=== PATIENT | male | born 1955 | race Caucasian/White ===

== ENCOUNTER 2024-06-17 18:42 | Emergency (ER) | payer MEDICARE, SELFPAY ==
[2024-06-17 18:46] VITALS: BP 160/88; PULSE 86; TEMP 36.6; O2SAT 99; BMI 28.8
--- NOTE | 2024-06-17 18:59 | CT_ITS ---
The [address] [address] Patient Name: MAUDE MATHIAS MRN: [facility]:[id number] date: 1955 Sex: M Assigned Patient Location: ED.MAIN Current Patient Location: ED.MAIN Accession/Order Number: [id number] Exam Date: 06/17/2024 20:32 Report Date: 06/17/2024 23:42 At the request of: ANTONIO BETTS Procedure: CT abdomen pelvis w con EXAM: CT abdomen pelvis w con, CT chest w con HISTORY: Rib pain since fall 9 days ago. Abdominal pain. No bowel movement. COMPARISON: CT chest, 10/14/2013. TECHNIQUE: IV contrast enhanced CT imaging of the chest, abdomen and pelvis was performed using 100 mL of Omnipaque 300 intravenous contrast. Sagittal and coronal reconstructions are provided. Dose reduction techniques were achieved by using automated exposure control and/or adjustment of mA and/or kV according to patient size and/or use of iterative reconstruction technique. FINDINGS: CT CHEST: No mediastinal or great vessel injury is seen. Pulsation artifact degrades ascending aorta. The left vertebral artery originates off the aortic arch, a normal variant. Mild atherosclerotic calcifications are present in the aortic arch. The thoracic aorta and arch vessels are otherwise unremarkable. Cardiac size is normal. No coronary arterial calcification or pericardial effusion is seen. The thyroid gland and esophagus are unremarkable. There is nonspecific patchy airspace disease in the left lower lobe which could reflect aspiration or pneumonia, versus less likely, atelectasis or pulmonary contusion. The lungs are otherwise clear. No pleural effusion or pneumothorax is seen. No acute osseous findings are seen in the chest. 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 CT ABDOMEN: No acute solid organ injury is seen. Cholelithiasis is noted without cholecystitis or biliary ductal dilatation. The liver and pancreas are unremarkable. There is a 0.9 cm subcapsular cyst in the posterior spleen. The second subcentimeter medial splenic cyst is seen on image 44. The spleen is otherwise unremarkable. The adrenal glands and right kidney appear normal. There are left renal cortical cysts measuring up to 4.1 cm off the lateral posterior midpole of the left kidney. The left kidney is otherwise unremarkable. There is nonspecific wall thickening in the gastric pylorus extending through the first and second segments of the duodenum with surrounding fat stranding favoring nonspecific gastroduodenitis. No discrete ulcer is seen. The stomach and small bowel are otherwise unremarkable. There are moderate aortic and iliac calcifications without aneurysm. The IVC appears normal. CT PELVIS: No acute pelvic organ injury is seen. The appendix, pelvic small bowel loops and urinary bladder are unremarkable. There are mild calcifications in the top normal-sized prostate. There is mid sigmoid diverticulitis with a suggested 2.5 cm intramural abscess in the anterior sigmoid wall on image 139 of series 6, and a suspected second intramural abscess distal to this level, measuring 2.4 cm on image 144. Moderate length sigmoid wall thickening is present with surrounding inflammatory fat stranding. There is a fat-containing left inguinal hernia. Multilevel spinal degenerative changes are noted. No acute osseous abnormality or suspicious bony lesion is seen. CT/CT abdomen pelvis w con IMPRESSION: 1. Nonspecific airspace disease in the left lower lobe may reflect aspiration or pneumonia, versus less likely, pulmonary contusion or atelectasis. No pleural fluid, pneumothorax or overlying rib fracture is seen. No other acute findings are seen in the chest. 2. No acute traumatic change in the abdomen or pelvis. 3. Nonspecific wall thickening in the gastric pylorus extending through the second portion of the duodenum with mild surrounding fat stranding favoring nonspecific gastroduodenitis. This could be infectious, inflammatory, or due to peptic ulcer disease. No discrete ulcer is visualized. There is no bowel wall hematoma to suggest a traumatic etiology. 4. Cholelithiasis. 5. Sigmoid diverticulitis with 2 suspected intramural abscesses within a moderate length segment of sigmoid wall thickening surrounded by inflammatory change. No free air. No additional acute findings in the abdomen or pelvis. Electronically authenticated by: LANI CHAMORRO Date: 06/17/2024 23:42
--- NOTE | 2024-06-17 18:59 | CT_ITS ---
The [address] [address] Patient Name: MAUDE MATHIAS MRN: [facility]:[id number] date: 1955 Sex: M Assigned Patient Location: ED.MAIN Current Patient Location: ED.MAIN Accession/Order Number: [id number] Exam Date: 06/17/2024 20:32 Report Date: 06/17/2024 23:42 At the request of: ANTONIO BETTS Procedure: CT chest w con EXAM: CT abdomen pelvis w con, CT chest w con HISTORY: Rib pain since fall 9 days ago. Abdominal pain. No bowel movement. COMPARISON: CT chest, 10/14/2013. TECHNIQUE: IV contrast enhanced CT imaging of the chest, abdomen and pelvis was performed using 100 mL of Omnipaque 300 intravenous contrast. Sagittal and coronal reconstructions are provided. Dose reduction techniques were achieved by using automated exposure control and/or adjustment of mA and/or kV according to patient size and/or use of iterative reconstruction technique. FINDINGS: CT CHEST: No mediastinal or great vessel injury is seen. Pulsation artifact degrades ascending aorta. The left vertebral artery originates off the aortic arch, a normal variant. Mild atherosclerotic calcifications are present in the aortic arch. The thoracic aorta and arch vessels are otherwise unremarkable. Cardiac size is normal. No coronary arterial calcification or pericardial effusion is seen. The thyroid gland and esophagus are unremarkable. There is nonspecific patchy airspace disease in the left lower lobe which could reflect aspiration or pneumonia, versus less likely, atelectasis or pulmonary contusion. The lungs are otherwise clear. No pleural effusion or pneumothorax is seen. No acute osseous findings are seen in the chest. 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 CT ABDOMEN: No acute solid organ injury is seen. Cholelithiasis is noted without cholecystitis or biliary ductal dilatation. The liver and pancreas are unremarkable. There is a 0.9 cm subcapsular cyst in the posterior spleen. The second subcentimeter medial splenic cyst is seen on image 44. The spleen is otherwise unremarkable. The adrenal glands and right kidney appear normal. There are left renal cortical cysts measuring up to 4.1 cm off the lateral posterior midpole of the left kidney. The left kidney is otherwise unremarkable. There is nonspecific wall thickening in the gastric pylorus extending through the first and second segments of the duodenum with surrounding fat stranding favoring nonspecific gastroduodenitis. No discrete ulcer is seen. The stomach and small bowel are otherwise unremarkable. There are moderate aortic and iliac calcifications without aneurysm. The IVC appears normal. CT PELVIS: No acute pelvic organ injury is seen. The appendix, pelvic small bowel loops and urinary bladder are unremarkable. There are mild calcifications in the top normal-sized prostate. There is mid sigmoid diverticulitis with a suggested 2.5 cm intramural abscess in the anterior sigmoid wall on image 139 of series 6, and a suspected second intramural abscess distal to this level, measuring 2.4 cm on image 144. Moderate length sigmoid wall thickening is present with surrounding inflammatory fat stranding. There is a fat-containing left inguinal hernia. Multilevel spinal degenerative changes are noted. No acute osseous abnormality or suspicious bony lesion is seen. CT/CT chest w con IMPRESSION: 1. Nonspecific airspace disease in the left lower lobe may reflect aspiration or pneumonia, versus less likely, pulmonary contusion or atelectasis. No pleural fluid, pneumothorax or overlying rib fracture is seen. No other acute findings are seen in the chest. 2. No acute traumatic change in the abdomen or pelvis. 3. Nonspecific wall thickening in the gastric pylorus extending through the second portion of the duodenum with mild surrounding fat stranding favoring nonspecific gastroduodenitis. This could be infectious, inflammatory, or due to peptic ulcer disease. No discrete ulcer is visualized. There is no bowel wall hematoma to suggest a traumatic etiology. 4. Cholelithiasis. 5. Sigmoid diverticulitis with 2 suspected intramural abscesses within a moderate length segment of sigmoid wall thickening surrounded by inflammatory change. No free air. No additional acute findings in the abdomen or pelvis. Electronically authenticated by: LANI CHAMORRO Date: 06/17/2024 23:42
--- NOTE | 2024-06-17 19:01 | ED_ITS ---
Documented by User: Nataly Kenney 06/19/24 13:57 HPI HPI - Fall General Chief Complaint: Fall Stated Complaint: FALL ON SAT, ELBOW/RIB PAIN Time Seen by Provider: 06/17/24 18:53 Source: patient Mode of arrival: walk-in Limitations: no limitations History of Present Illness HPI Narrative: 69 year old male presents to the ED for pain to his mid abdomen s/p fall 06/08/24. States his legs gave out on him causing him to fall; states that is a recurrent issue for him. He was walking a large dog at the time which complicated the problem. He landed on his left elbow and left rib area. Denies hitting his head and LOC. Denies pain to his head, neck, back. He no longer has pain to the elbow. Reports decreased appetite due to his pain. His abd pain has been increasing. Denies SOB, dizziness, hematuria. Denies difficulty urinating. Related Data Home Medications ?Medication ?Instructions ?Recorded ?Confirmed No Known Home Medications 06/17/24 06/17/24 Allergies Allergy/AdvReac Type Severity Reaction Status Date / Time No Known Drug Allergies Allergy Verified 06/17/24 18:45 Opioid HPI Opioid Management Most Recent Pain and Opioid Data: Last Pain Scale 6 06/17/24 19:06 06/17/24 Review of Systems ROS Constitutional Denies: fever or chills Ears, nose, mouth, and throat Denies: throat pain or neck pain Cardiovascular Denies: chest pain Respiratory Denies: shortness of breath, wheezing or stridor Gastrointestinal Reports: abdominal pain; Denies: nausea, vomiting, diarrhea or blood in stool Genitourinary Denies: painful urination, blood in urine or difficulty urinating Musculoskeletal Denies: back pain, neck pain or extremity pain Integumentary/Breast Denies: rash, redness or skin pain Neurological Denies: headache, numbness in extremities, weakness in extremities, lack of coordination, dizziness or slurred speech Exam Constitutional Vital Signs, click to edit/add: Last Vital Signs Temp 97.9 F 06/17/24 18:46 Pulse 72 06/18/24 03:09 Resp 18 06/18/24 03:09 BP 144/85 H 06/18/24 03:09 Pulse Ox 97 06/18/24 03:09 O2 Del Method Room Air 06/18/24 03:09 Common normals: no apparent distress and oriented x3 General appearance: cooperative HENMT Common normals: normocephalic and head/scalp atraumatic Eye Common normals: PERRL, conjunctivae normal and no scleral icterus Neck & C-Spine Common normals: supple Cervical spine: no cervical spine tenderness, no paracervical muscle tenderness and no paracervical muscle spasm Respiratory Common normals: normal respiratory effort Effort & inspection: able to speak in complete sentences and symmetric chest movement Cardio Common normals: regular rate GI Common normals: Normal to inspection, nondistended, normoactive bowel sounds present and soft to palpation Palpation: tender Details: LLQ, RLQ, LUQ and RUQ Back & Pelvis Thoracic spine/upper back: no thoracic spinal tenderness, no paraspinal muscle tenderness and no paraspinal muscle spasm Lumbar spine/lower back: no lumbar spinal tenderness, no paraspinal muscle tenderness and no paraspinal muscle spasm Neuro Common normals: oriented x3 and moves all extremities Sensorium/orientation: awake and alert Speech: speech normal Gait (neuro): normal gait Course Vital Signs Vital signs: Vital Signs Temperature 97.9 F 06/17/24 18:46 Pulse Rate 86 06/17/24 18:46 Respiratory Rate 18 06/17/24 18:46 Blood Pressure 160/88 H 06/17/24 18:46 Pulse Oximetry 99 06/17/24 18:46 Oxygen Delivery Method Room Air 06/17/24 18:46 Temperature 97.9 F 06/17/24 18:46 Pulse Rate 72 06/18/24 03:09 Respiratory Rate 18 06/18/24 03:09 Blood Pressure 144/85 H 06/18/24 03:09 Pulse Oximetry 97 06/18/24 03:09 Oxygen Delivery Method Room Air 06/18/24 03:09 MDM - Fall MDM Narrative Medical decision making narrative: WBC count was 16.1. CT scan was pending. Care was resumed to Dr. Ku. See his dictation for further evaluation and treatment. care transfered at change of shift. CTs pending. CT with ? of nonspecific airspace disease LLL. Patient does not have any respiratory symptoms. His main complaint is abdominal pain. CT with finding of gastroiduodenitis and sigmoid diverticultis with 2 suspected intramural abscesses. Patient treated with IV flagyl and Zosyn. Discussed with Gen. Surgeon DR Hughes and patient accepted in transfer given dose of protonix IV also Medical Records Attestation: I reviewed the patient's medical records. Lab Data Attestation: I reviewed the patient's lab results. Labs: Lab Results 06/17/24 06/17/24 Range/Units 18:53 18:59 WBC 16.1 H (4.0-11.0) 10^3/uL RBC 4.49 L (4.70-6.10) 10^6/uL Hgb 14.5 (14.0-18.0) g/dL Hct 41.5 L (42.0-54.0) % MCV 92.4 (80.0-94.0) fL MCH 32.3 (25.9-34.0) pg MCHC 34.9 (29.9-35.2) g/dL RDW 12.2 (11.0-15.0) % Plt Count 385 (150-450) 10^3/uL MPV 9.4 L (9.5-13.5) fL Neut % (Auto) 82.5 H (43.0-75.0) % Lymph % (Auto) 10.7 L (20.5-60.0) % [place] % (Auto) 4.3 (1.7-12.0) % Eos % (Auto) 0.7 L (0.9-7.0) % Baso % (Auto) 0.3 (0.2-2.0) % Neut # (Auto) 13.3 H (1.4-6.5) 10^3/uL Lymph # (Auto) 1.7 (1.2-3.8) 10^3/uL [place] # (Auto) 0.7 (0.3-0.8) 10^3/uL Eos # (Auto) 0.1 (0.0-0.7) 10^3/uL Baso # (Auto) 0.1 (0.0-0.1) 10^3/uL Abs Immat Gran (auto) 0.25 H (0.00-0.03) 10^3/uL Imm/Tot Granulo (auto) 1.5 H (0.0-0.5) % Sodium 132 L (136-145) mmol/L Potassium 3.8 (3.5-5.1) mmol/L Chloride 97 L (98-107) mmol/L Carbon Dioxide 27.3 (21.0-32.0) mmol/L Anion Gap 11.5 BUN 31.0 H (7.0-18.0) mg/dL Creatinine 1.35 H (0.70-1.30) mg/dL Est GFR ( Amer) >60 (>=60 mL/min/1.73m^2) Est GFR (Non-Af Amer) 53 L (>=60 mL/min/1.73m^2) BUN/Creatinine Ratio 23.0 Glucose 140 H (74-106) mg/dL Calcium 9.5 (8.5-10.1) mg/dL Total Bilirubin 0.6 (0.2-1.0) mg/dL AST 11 L (15-37) U/L ALT 40 (16-63) U/L Alkaline Phosphatase 54 (46-116) U/L Total Protein 7.7 (6.4-8.2) g/dL Albumin 2.9 L (3.4-5.0) g/dL Globulin 4.8 g/dL Albumin/Globulin Ratio 0.6 Urine Color Dk. orange (YELLOW) Urine Clarity Clear (CLEAR) Urine pH 6.0 (5.0-9.0) Ur Specific [place] 1.025 (1.005-1.025) Urine Protein Negative (NEG/TRACE) mg/dL Urine Glucose (UA) Negative (NEGATIVE) mg/dL Urine Ketones Negative (NEGATIVE) mg/dL Urine Occult Blood Negative (NEGATIVE) Urine Nitrite Negative (NEGATIVE) Urine Bilirubin Negative (NEGATIVE) Urine Urobilinogen 0.2 (0.2-1.0) EU/dL Ur Leukocyte Esterase Negative (NEGATIVE) Urine RBC 5-10 A (0-2) #/HPF Urine WBC 5-10 A (NONE SEEN) #/HPF Ur Squamous Epith Cells None seen (NONE/RARE) #/LPF Urine Crystals None seen (None Seen) #/HPF Urine Bacteria None seen (NONE SEEN) #/HPF Urine Casts Seen A (NONE SEEN) #/LPF Hyaline Casts Rare Urine Mucus Large A (NONE SEEN) Ur Culture Indicated? Yes Discharge Plan Discharge Chief Complaint: Fall Clinical Impression: Gastroduodenitis, Diverticulitis of intestine with abscess Patient Disposition: [facility] Mode of Transportation: EMS Discharge Date/Time: 06/18/24 03:09 Documented by User: Judson Ku MD 06/18/24 01:15 HPI HPI - Fall General Chief Complaint: Fall Stated Complaint: FALL ON SAT, ELBOW/RIB PAIN Time Seen by Provider: 06/17/24 18:53 Related Data Home Medications ?Medication ?Instructions ?Recorded ?Confirmed No Known Home Medications 06/17/24 06/17/24 Allergies Allergy/AdvReac Type Severity Reaction Status Date / Time No Known Drug Allergies Allergy Verified 06/17/24 18:45 Opioid HPI Opioid Management Most Recent Pain and Opioid Data: Last Pain Scale 6 06/17/24 19:06 06/17/24 Exam Constitutional Vital Signs, click to edit/add: Last Vital Signs Temp 97.9 F 06/17/24 18:46 Pulse 72 06/18/24 03:09 Resp 18 06/18/24 03:09 BP 144/85 H 06/18/24 03:09 Pulse Ox 97 06/18/24 03:09 O2 Del Method Room Air 06/18/24 03:09 Course Vital Signs Vital signs: Vital Signs Temperature 97.9 F 06/17/24 18:46 Pulse Rate 86 06/17/24 18:46 Respiratory Rate 18 06/17/24 18:46 Blood Pressure 160/88 H 06/17/24 18:46 Pulse Oximetry 99 06/17/24 18:46 Oxygen Delivery Method Room Air 06/17/24 18:46 Temperature 97.9 F 06/17/24 18:46 Pulse Rate 72 06/18/24 03:09 Respiratory Rate 18 06/18/24 03:09 Blood Pressure 144/85 H 06/18/24 03:09 Pulse Oximetry 97 06/18/24 03:09 Oxygen Delivery Method Room Air 06/18/24 03:09 MDM - Fall MDM Narrative Medical decision making narrative: WBC count was 16.1. care transfered at change of shift. CTs pending. CT with ? of nonspecific airspace disease LLL. Patient does not have any respiratory symptoms. His main complaint is abdominal pain. CT with finding of gastroiduodenitis and sigmoid diverticultis with 2 suspected intramural abscesses. Patient treated with IV flagyl and Zosyn. Discussed with Gen. Surgeon DR Hughes and patient accepted in transfer given dose of protonix IV also Lab Data Labs: Lab Results 06/17/24 06/17/24 Range/Units 18:53 18:59 WBC 16.1 H (4.0-11.0) 10^3/uL RBC 4.49 L (4.70-6.10) 10^6/uL Hgb 14.5 (14.0-18.0) g/dL Hct 41.5 L (42.0-54.0) % MCV 92.4 (80.0-94.0) fL MCH 32.3 (25.9-34.0) pg MCHC 34.9 (29.9-35.2) g/dL RDW 12.2 (11.0-15.0) % Plt Count 385 (150-450) 10^3/uL MPV 9.4 L (9.5-13.5) fL Neut % (Auto) 82.5 H (43.0-75.0) % Lymph % (Auto) 10.7 L (20.5-60.0) % [place] % (Auto) 4.3 (1.7-12.0) % Eos % (Auto) 0.7 L (0.9-7.0) % Baso % (Auto) 0.3 (0.2-2.0) % Neut # (Auto) 13.3 H (1.4-6.5) 10^3/uL Lymph # (Auto) 1.7 (1.2-3.8) 10^3/uL [place] # (Auto) 0.7 (0.3-0.8) 10^3/uL Eos # (Auto) 0.1 (0.0-0.7) 10^3/uL Baso # (Auto) 0.1 (0.0-0.1) 10^3/uL Abs Immat Gran (auto) 0.25 H (0.00-0.03) 10^3/uL Imm/Tot Granulo (auto) 1.5 H (0.0-0.5) % Sodium 132 L (136-145) mmol/L Potassium 3.8 (3.5-5.1) mmol/L Chloride 97 L (98-107) mmol/L Carbon Dioxide 27.3 (21.0-32.0) mmol/L Anion Gap 11.5 BUN 31.0 H (7.0-18.0) mg/dL Creatinine 1.35 H (0.70-1.30) mg/dL Est GFR ( Amer) >60 (>=60 mL/min/1.73m^2) Est GFR (Non-Af Amer) 53 L (>=60 mL/min/1.73m^2) BUN/Creatinine Ratio 23.0 Glucose 140 H (74-106) mg/dL Calcium 9.5 (8.5-10.1) mg/dL Total Bilirubin 0.6 (0.2-1.0) mg/dL AST 11 L (15-37) U/L ALT 40 (16-63) U/L Alkaline Phosphatase 54 (46-116) U/L Total Protein 7.7 (6.4-8.2) g/dL Albumin 2.9 L (3.4-5.0) g/dL Globulin 4.8 g/dL Albumin/Globulin Ratio 0.6 Urine Color Dk. orange (YELLOW) Urine Clarity Clear (CLEAR) Urine pH 6.0 (5.0-9.0) Ur Specific [place] 1.025 (1.005-1.025) Urine Protein Negative (NEG/TRACE) mg/dL Urine Glucose (UA) Negative (NEGATIVE) mg/dL Urine Ketones Negative (NEGATIVE) mg/dL Urine Occult Blood Negative (NEGATIVE) Urine Nitrite Negative (NEGATIVE) Urine Bilirubin Negative (NEGATIVE) Urine Urobilinogen 0.2 (0.2-1.0) EU/dL Ur Leukocyte Esterase Negative (NEGATIVE) Urine RBC 5-10 A (0-2) #/HPF Urine WBC 5-10 A (NONE SEEN) #/HPF Ur Squamous Epith Cells None seen (NONE/RARE) #/LPF Urine Crystals None seen (None Seen) #/HPF Urine Bacteria None seen (NONE SEEN) #/HPF Urine Casts Seen A (NONE SEEN) #/LPF Hyaline Casts Rare Urine Mucus Large A (NONE SEEN) Ur Culture Indicated? Yes Discharge Plan Discharge Chief Complaint: Fall Clinical Impression: Gastroduodenitis, Diverticulitis of intestine with abscess Patient Disposition: [facility] Mode of Transportation: EMS Discharge Date/Time: 06/18/24 03:09
[2024-06-17 19:13] LABS: Basophils Absolute Auto 0.1 10^3/uL (0.0-0.1); Basophils Percent Auto 0.3 % (0.2-2.0); Eosinophils Absolute Auto 0.1 10^3/uL (0.0-0.7); Eosinophils Percent Auto 0.7 % (0.9-7.0); Hematocrit 41.5 % (42.0-54.0); Hemoglobin 14.5 g/dL (14.0-18.0); Immature Granulocytes Abs Auto 0.25 10^3/uL (0.00-0.03); Immature Granulocytes Pct Auto 1.5 % (0.0-0.5); Lymphocytes Absolute Auto 1.7 10^3/uL (1.2-3.8); Lymphocytes Percent Auto 10.7 % (20.5-60.0); Mean Corpuscular HGB Conc 34.9 g/dL (29.9-35.2); Mean Corpuscular Hemoglobin 32.3 pg (25.9-34.0); Mean Corpuscular Volume 92.4 fL (80.0-94.0); Mean Platelet Volume 9.4 fL (9.5-13.5); Monocytes Absolute Auto 0.7 10^3/uL (0.3-0.8); Monocytes Percent Auto 4.3 % (1.7-12.0); Neutrophils Absolute Auto 13.3 10^3/uL (1.4-6.5); Neutrophils Percent Auto 82.5 % (43.0-75.0); Platelet Count 385 10^3/uL (150-450); Red Blood Count 4.49 10^6/uL (4.70-6.10); Red Cell Distribution Width 12.2 % (11.0-15.0); White Blood Count 16.1 10^3/uL (4.0-11.0)
[2024-06-17 19:14] LABS: Bilirubin Urine NEGATIVE (NEGATIVE); Blood Urine NEGATIVE (NEGATIVE); Clarity Urine CLEAR (CLEAR); Color Urine DK. ORANGE (YELLOW); Glucose Urine UA NEGATIVE (NEGATIVE); Ketones Urine NEGATIVE (NEGATIVE); Leukocyte Esterase Urine NEGATIVE (NEGATIVE); Nitrite Urine NEGATIVE (NEGATIVE); Protein Urine NEGATIVE (NEG/TRACE); Specific Gravity Urine 1.025 (1.005-1.025); Urobilinogen Urine 0.2 EU/dL (0.2-1.0)
[2024-06-17] MEDS: MORPHINE SULFATE 4 MG/ML VIAL IV (19:15)
[2024-06-17] MEDS: ONDANSETRON PF 4 MG/2 ML VIAL IV (19:15)
[2024-06-17 19:20] LABS: Urine Microscopic Indicated YES
[2024-06-17 19:21] LABS: Bacteria Urine NONE SEEN #/HPF (NONE SEEN); Cast Seen? SEEN #/LPF (NONE SEEN); Crystals Seen? None Seen #/HPF (None Seen); Hyaline Casts Urine RARE; Mucus Urine LARGE (NONE SEEN); Squamous Epithelial Cell Urine NONE SEEN #/LPF (NONE/RARE); Urine Culture Indicated YES
[2024-06-17 19:29] LABS: Alanine Aminotransferase 40 U/L (16-63); Albumin Globulin Ratio 0.6; Albumin Level 2.9 g/dL (3.4-5.0); Alkaline Phosphatase 54 U/L (46-116); Anion Gap 11.5; Aspartate Amino Transferase 11 U/L (15-37); Bilirubin Total 0.6 mg/dL (0.2-1.0); Calcium 9.5 mg/dL (8.5-10.1); Carbon Dioxide 27.3 mmol/L (21.0-32.0); Chloride 97 mmol/L (98-107); Estimated GFR (African America >60 (>=60 mL/min/1.73m^2); Estimated GFR (Non-African Ame 53 (>=60 mL/min/1.73m^2); Globulin 4.8 g/dL; Glucose 140 mg/dL (74-106); Potassium 3.8 mmol/L (3.5-5.1); Sodium 132 mmol/L (136-145); Total Protein 7.7 g/dL (6.4-8.2)
[2024-06-17] MEDS: 0.9 % SODIUM CHLORIDE 1,000 ML 1000 ML IV (21:50)
[2024-06-18] MEDS: METRONIDAZOLE/SODIUM CHLORIDE 500 MG/100 ML PREMIX 100 MG IV (00:16)
[2024-06-18] MEDS: PANTOPRAZOLE SODIUM 40 MG VIAL IV (00:16)
[2024-06-18] MEDS: PIPERACILLIN SODIUM/TAZOBACTAM 3.375 GM in 0.9 % SODIUM CHLORIDE 50 ML IV (00:17)
--- NOTE | 2024-06-18 02:57 | PC.NURSE ---
Pt Diana called and updated on pt status and room number at [facility] in [place]. Pt awaiting transfer via [facility]
[2024-06-18 03:09] VITALS: BP 144/85; PULSE 72; O2SAT 97
--- NOTE | 2024-06-18 03:22 | PC.NURSE ---
Report called to Yelena BHATT at [facility]
== END 2024-06-18 03:09 | disposition short-term general hospital (02) ==
PROVIDERS: Nurse Practitioner Family; Emergency Provider Internal Medicine
DX: K57.20 Diverticulitis of large intestine with perforation and abscess without bleeding (principal); K29.90 Gastroduodenitis, unspecified, without bleeding; Z91.81 History of falling; K80.20 Calculus of gallbladder without cholecystitis without obstruction; D73.4 Cyst of spleen; K40.90 Unilateral inguinal hernia, without obstruction or gangrene, not specified as recurrent
CPT/HCPCS: 36415; 71260; 74177; 80053; 81001; 85025; 87086; 96365; 96368; 96375; 99285; J1836; J2270; J2405; J2543; Q9967

== ENCOUNTER 2024-06-23 00:41 | Emergency (ER) | payer MEDICARE, SELFPAY ==
[2024-06-23] VITALS (53 sets, daily range): BP systolic 114–175; BP diastolic 64–131; PULSE 73–128; TEMP 36.6; O2SAT 95–100; BMI 27.4
--- NOTE | 2024-06-23 00:52 | ECG_ITS ---
The [facility] Test Date: 2024-06-23 Pat Name: MAUDE MATHIAS Department: Room: - Gender: Male [employer] Compliance [employer]st: : 1955 Requested By: Order Number: [id number] Reading MD: RONNI ALVARADO Measurements Intervals [place] Rate: 85 P: 66 MI: 148 QRS: 71 QRSD: 92 T: 77 QT: 388 QTc: 431 Interpretive Statements 1100 Sinus rhythm 1574 with frequent ventricular premature complexes [address] depression 9150 abnormal ECG No previous ECG available for comparison Electronically Signed On 06-23-2024 12:09:15 EST by RONNI ALVARADO
--- NOTE | 2024-06-23 01:01 | CT_ITS ---
[address] [address] Patient Name: MAUDE MATHIAS MRN: [facility]:[id number] date: 1955 Sex: M Assigned Patient Location: ER Current Patient Location: Accession/Order Number: [id number] Exam Date: 06/23/2024 02:20 Report Date: 06/23/2024 05:10 At the request of: TI CHAPMAN Procedure: CT abdomen pelvis w con EXAMINATION: CT abdomen pelvis w con INDICATION: diverticulitis. COMPARISON: CT abdomen and pelvis 08/17/2023 TECHNIQUE: Multiple contiguous axial CT images of the abdomen and pelvis were obtained after the administration of intravenous contrast. Sagittal and coronal reconstructions were performed. Dose reduction techniques were achieved by using: automated exposure control and/or adjustment of mA and /or kV according to patient size and/or use of iterative reconstruction technique. FINDINGS: LOWER CHEST: Stable groundglass and consolidative opacities in the left lung base. Stable elevation of the left hemidiaphragm. ABDOMEN AND PELVIS: LIVER: Stable right hepatic lobe subcentimeter lesion, too small to characterize, likely a cyst. BILIARY SYSTEM: Cholelithiasis. No biliary ductal dilatation. PANCREAS: Normal. SPLEEN: Stable subcentimeter hypoattenuating splenic lesions, likely cysts. ADRENAL GLANDS: Normal. URINARY SYSTEM: Normal right kidney. Stable left renal cyst. No hydronephrosis or urolithiasis. Normal bladder. REPRODUCTIVE: Unremarkable. GASTROINTESTINAL TRACT: No significant change of mid sigmoid colon diverticulitis with wall thickening and moderate surrounding inflammatory stranding. Similar size of suspected intramural fluid collection measuring 2.1 cm (3:141). Improved but persistent circumferential wall thickening and inflammation of the gastric antrum and first and second portions of the duodenum. Normal caliber bowel. Normal appendix. Liquefied stool in the rectum suggestive of diarrheal state. VESSELS: Nonaneurysmal abdominal aorta with moderate atherosclerotic calcifications. Patent abdominal vasculature. LYMPH NODES: No adenopathy. PERITONEUM: No ascites or pneumoperitoneum. MUSCULOSKELETAL: SOFT TISSUES: Small fat-containing left inguinal hernia. BONES: No acute osseous abnormality or suspicious osseous lesion. WEIR: (series:image) CT/CT abdomen pelvis w con IMPRESSION: 1. No significant change of sigmoid diverticulitis and suspected small intramural abscess. 2. Improved but persistent gastroduodenitis. 3. No new acute process in the abdomen or pelvis. 4. Stable infectious/inflammatory infiltrates versus atelectasis in the left lung base. Electronically authenticated by: LUIS A HINTON Date: 06/23/2024 05:10
--- NOTE | 2024-06-23 01:02 | ED.SYNCOPE1 ---
HPI - Syncope General Chief Complaint: Dizziness Stated Complaint: abd pain Time Seen by Provider: 06/23/24 00:52 Source: patient Mode of arrival: ambulance Limitations: no limitations History of Present Illness HPI narrative: patient was seen here 06/17/24 for diverticulitis and intramural abscess. Transferred to OSH. Was discharged home 06/19/24 on flagyl and cipro. States before discharge he passed tarry stool. States he continues to have tarry stools. Today 4-5 episodes of diarrhea. Tonight sitting on the commode he passed out and his called Squad. He arrives awake but weak. No chest pain. Still has some abdominal pain. No nausea or vomiting. no preceding chest pain Related Data Home Medications ?Medication ?Instructions ?Recorded ?Confirmed ciprofloxacin HCl 500 mg tablet 500 mg PO BID 06/23/24 06/23/24 (Cipro) metronidazole 500 mg tablet 500 mg PO TID 06/23/24 06/23/24 Allergies Allergy/AdvReac Type Severity Reaction Status Date / Time ciprofloxacin (From Cipro) AdvReac Intermediate Weakness Verified 06/23/24 06:24 Review of Systems ROS Status of ROS 10 or more systems reviewed and unremarkable except as noted in history and below [facility] Social History Little interest or pleasure in doing things: not at all Feeling down, depressed, or hopeless: not at all Exam Constitutional Vital Signs, click to edit/add: Last Vital Signs Temp 97.8 F 06/23/24 00:44 Pulse 85 06/23/24 06:20 Resp 13 06/23/24 06:20 BP 128/70 06/23/24 06:00 Pulse Ox 97 06/23/24 06:20 O2 Del Method Room Air 06/23/24 00:44 Common normals: oriented x3, no limitations and alert Other: appears weak HENMT Common normals: normocephalic and head/scalp atraumatic Eye Common normals: EOMs intact bilaterally and conjunctivae normal Respiratory Common normals: normal respiratory effort, no retractions, no use of accessory muscles and clear to auscultation bilaterally Cardio Common normals: regular rate, regular rhythm, S1 normal heart sound and S2 normal heart sound GI Common normals: Normal to inspection, nondistended, normoactive bowel sounds present and soft to palpation Other: mild gen. tenderness Extremity Common normals: normal to inspection and full ROM Neuro Common normals: oriented x3, CN's II-XII intact bilaterally, moves all extremities and no focal motor deficits Psych Appearance: grossly normal Course Vital Signs Vital signs: Vital Signs Pulse Rate 87 06/23/24 00:42 Respiratory Rate 23 H 06/23/24 00:42 Temperature 97.8 F 06/23/24 00:44 Pulse Rate 85 06/23/24 06:20 Respiratory Rate 13 06/23/24 06:20 Blood Pressure 128/70 06/23/24 06:00 Pulse Oximetry 97 06/23/24 06:20 Oxygen Delivery Method Room Air 06/23/24 00:44 MDM - Syncope MDM Narrative Medical decision making narrative: patient seen 06/17/24 and found to have gastroduodenitis , sigmoid diverticulitis with 2 intramural abscesses . Was transferred to [facility]. Was discharged after a couple of day on Cipro and Flagyl. At home complained of tarry loose stools. Tonight he passed out on the commode and his called Squad. Arrived here weak but awake. Exam of the abdomen with mild RLQ tenderness. No guarding. Repeat CT with evidence of improvement. He now only has 1 abscess and it is smaller. Still has sigmoid diverticulitis and persistent gastroduodenitis which is likely cause of GI bleed. His Hgb was 14.5 on 06/17/24 and it now 9.4. When he first came in he had recurrent PVCs on the monitor. This has resolved. Lactic acid improved from 3.1 to 1.3 with hydration. Troponin is neg. We do not have surgery available here. Family does not want to go back [facility] [place]. Discussed with hospitalist Dr Hurley and patient accepted at [facility]. 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 States when he would take Cipro and would make his legs feel weak. Patient medicated here with protonix, Zosyn and Flagyl. Lab Data Labs: Lab Results 06/23/24 06/23/24 06/23/24 Range/Units 00:55 01:18 03:45 WBC 16.6 H (4.0-11.0) 10^3/uL RBC 2.85 L (4.70-6.10) 10^6/uL Hgb 9.4 L (14.0-18.0) g/dL Hct 26.4 L (42.0-54.0) % MCV 92.6 (80.0-94.0) fL MCH 33.0 (25.9-34.0) pg MCHC 35.6 H (29.9-35.2) g/dL RDW 12.5 (11.0-15.0) % Plt Count 480 H (150-450) 10^3/uL MPV 9.4 L (9.5-13.5) fL Neut % (Auto) 79.8 H (43.0-75.0) % Lymph % (Auto) 14.4 L (20.5-60.0) % [place] % (Auto) 4.8 (1.7-12.0) % Eos % (Auto) 0.2 L (0.9-7.0) % Baso % (Auto) 0.2 (0.2-2.0) % Neut # (Auto) 13.2 H (1.4-6.5) 10^3/uL Lymph # (Auto) 2.4 (1.2-3.8) 10^3/uL [place] # (Auto) 0.8 (0.3-0.8) 10^3/uL Eos # (Auto) 0.0 (0.0-0.7) 10^3/uL Baso # (Auto) 0.0 (0.0-0.1) 10^3/uL Abs Immat Gran (auto) 0.10 H (0.00-0.03) 10^3/uL Imm/Tot Granulo (auto) 0.6 H (0.0-0.5) % Sodium 132 L (136-145) mmol/L Potassium 3.7 (3.5-5.1) mmol/L Chloride 98 (98-107) mmol/L Carbon Dioxide 20.9 L (21.0-32.0) mmol/L Anion Gap 16.8 BUN 31.0 H (7.0-18.0) mg/dL Creatinine 1.27 (0.70-1.30) mg/dL Est GFR ( Amer) >60 (>=60 mL/min/1.73m^2) Est GFR (Non-Af Amer) 57 L (>=60 mL/min/1.73m^2) BUN/Creatinine Ratio 24.4 Glucose 199 H (74-106) mg/dL Lactate 3.1 H* 1.3 (0.4-2.0) mmol/L Calcium 8.1 L (8.5-10.1) mg/dL Magnesium 2.0 (1.8-2.4) mg/dL Total Bilirubin 0.4 (0.2-1.0) mg/dL AST 15 (15-37) U/L ALT 27 (16-63) U/L Alkaline Phosphatase 32 L (46-116) U/L Troponin I High Sens 6.3 (4.0-76.1) pg/mL Total Protein 5.6 L (6.4-8.2) g/dL Albumin 2.3 L (3.4-5.0) g/dL Globulin 3.3 g/dL Albumin/Globulin Ratio 0.7 Stool Occult Blood Positive A Imaging Data Abdominal x-ray: Radiologist's impression: ITS Impressions Abdomen/Pelvis CT 06/23/24 01:01 IMPRESSION: 1. No significant change of sigmoid diverticulitis and suspected small intramural abscess. 2. Improved but persistent gastroduodenitis. 3. No new acute process in the abdomen or pelvis. 4. Stable infectious/inflammatory infiltrates versus atelectasis in the left lung base. Electronically authenticated by: LUIS A HINTON Date: 06/23/2024 05:10 Critical Care Time Critical Care Time Total Critical Care Time: 45 Discharge Plan Discharge Chief Complaint: Dizziness Clinical Impression: Diverticulitis of intestine with abscess, Syncope, GI (gastrointestinal bleed) Patient Disposition: [facility]
[2024-06-23 01:10] LABS: Basophils Percent Auto 0.2 % (0.2-2.0); Eosinophils Percent Auto 0.2 % (0.9-7.0); Hematocrit 26.4 % (42.0-54.0); Hemoglobin 9.4 g/dL (14.0-18.0); Immature Granulocytes Pct Auto 0.6 % (0.0-0.5); Lymphocytes Absolute Auto 2.4 10^3/uL (1.2-3.8); Lymphocytes Percent Auto 14.4 % (20.5-60.0); Mean Corpuscular HGB Conc 35.6 g/dL (29.9-35.2); Mean Corpuscular Volume 92.6 fL (80.0-94.0); Mean Platelet Volume 9.4 fL (9.5-13.5); Monocytes Absolute Auto 0.8 10^3/uL (0.3-0.8); Monocytes Percent Auto 4.8 % (1.7-12.0); Neutrophils Absolute Auto 13.2 10^3/uL (1.4-6.5); Neutrophils Percent Auto 79.8 % (43.0-75.0); Platelet Count 480 10^3/uL (150-450); Red Blood Count 2.85 10^6/uL (4.70-6.10); Red Cell Distribution Width 12.5 % (11.0-15.0); White Blood Count 16.6 10^3/uL (4.0-11.0)
[2024-06-23] MEDS: 0.9 % SODIUM CHLORIDE 1,000 ML 999 ML IV (01:16)
[2024-06-23 01:24] LABS: Alanine Aminotransferase 27 U/L (16-63); Albumin Globulin Ratio 0.7; Albumin Level 2.3 g/dL (3.4-5.0); Alkaline Phosphatase 32 U/L (46-116); Anion Gap 16.8; Aspartate Amino Transferase 15 U/L (15-37); BUN Creatinine Ratio 24.4; Bilirubin Total 0.4 mg/dL (0.2-1.0); Calcium 8.1 mg/dL (8.5-10.1); Carbon Dioxide 20.9 mmol/L (21.0-32.0); Chloride 98 mmol/L (98-107); Estimated GFR (African America >60 (>=60 mL/min/1.73m^2); Estimated GFR (Non-African Ame 57 (>=60 mL/min/1.73m^2); Globulin 3.3 g/dL; Glucose 199 mg/dL (74-106); Potassium 3.7 mmol/L (3.5-5.1); Sodium 132 mmol/L (136-145); Total Protein 5.6 g/dL (6.4-8.2)
[2024-06-23 01:26] LABS: Troponin I High Sensitivity 6.3 pg/mL (4.0-76.1)
[2024-06-23 01:29] LABS: Lactate/Lactic Acid 3.1 mmol/L (0.4-2.0)
[2024-06-23 02:08] LABS: Internal Control Within Normal Limits; Occult Blood Positive
[2024-06-23 04:07] LABS: Lactate/Lactic Acid 1.3 mmol/L (0.4-2.0)
[2024-06-23] MEDS: PANTOPRAZOLE SODIUM 40 MG VIAL IV (05:53)
[2024-06-23] MEDS: PIPERACILLIN SODIUM/TAZOBACTAM 3.375 GM in 0.9 % SODIUM CHLORIDE 50 ML IV (06:36)
[2024-06-23] MEDS: 0.9 % SODIUM CHLORIDE 1,000 ML 100 ML IV (06:36)
[2024-06-23] MEDS: METRONIDAZOLE/SODIUM CHLORIDE 500 MG/100 ML PREMIX 100 MG IV (07:10)
[2024-06-23 07:30] LABS: Basophils Percent Auto 0.2 % (0.2-2.0); Hemoglobin 8.1 g/dL (14.0-18.0); Immature Granulocytes Abs Auto 0.05 10^3/uL (0.00-0.03); Immature Granulocytes Pct Auto 0.3 % (0.0-0.5); Lymphocytes Percent Auto 6.9 % (20.5-60.0); Mean Corpuscular HGB Conc 34.9 g/dL (29.9-35.2); Mean Corpuscular Hemoglobin 32.8 pg (25.9-34.0); Mean Corpuscular Volume 93.9 fL (80.0-94.0); Mean Platelet Volume 9.2 fL (9.5-13.5); Monocytes Absolute Auto 0.5 10^3/uL (0.3-0.8); Monocytes Percent Auto 3.6 % (1.7-12.0); Neutrophils Absolute Auto 12.9 10^3/uL (1.4-6.5); Platelet Count 366 10^3/uL (150-450); Red Blood Count 2.47 10^6/uL (4.70-6.10); Red Cell Distribution Width 12.6 % (11.0-15.0); White Blood Count 14.4 10^3/uL (4.0-11.0)
[2024-06-23 07:40] LABS: Hematocrit 23.2 % (42.0-54.0)
--- NOTE | 2024-06-23 10:01 | PC.NURSE ---
tried calling pt's , Diana, and no answer. AZAEL.
== END 2024-06-23 10:00 | disposition short-term general hospital (02) ==
PROVIDERS: Emergency Medicine; Emergency Provider Internal Medicine
DX: K57.21 Diverticulitis of large intestine with perforation and abscess with bleeding (principal); R55 Syncope and collapse; K29.91 Gastroduodenitis, unspecified, with bleeding
CPT/HCPCS: 36415; 74177; 80053; 83605; 83735; 84484; 85025; 93005; 96361; 96365; 96367; 96375; 99285; G0328; J1836; J2543; Q9967